=== PATIENT | female | born 1970 | race Caucasian/White ===

== ENCOUNTER → 2022-05-31 | Outpatient (CLI) | payer OTHER ==
[2022-05-31 15:17] LABS: HEMOGLOBIN 14.7 gm/dl (12.3-15.3); RED BLOOD COUNT 4.68 M/UL (4.00-5.10); WHITE BLOOD COUNT 12.1 K/UL (4.5-11.0)
[2022-05-31 22:46] LABS: BUN/CREATININE RATIO 18 (0-10)
[2022-06-01 07:12] LABS: VITAMIN D, 25-HYDROXY 16.3 ng/mL (30.0-100.0)
[2022-06-01 08:13] LABS: ANTISTREPTOLYSIN O AB 550.8 IU/mL (0.0-200.0); RHEUMATOID ARTHRITIS FACTOR <10.0 IU/mL (<14.0)
[2022-06-03 17:08] LABS: HBSAG SCREEN Negative (Negative); HCV AB >11.0 (0.0-0.9); HCV LOG10 7.093 (.); HCV RNA (INTERNATIONAL UNITS) 12400000 IU/mL (.); HEP A AB, IGM Negative (Negative); HEP B CORE AB, IGM Negative (Negative); HEPATITIS C QUANTITATION See Final Results IU/mL (.)
== END ==
LOC: RAD 13:49
PROVIDERS: Nurse Practitioner Family
DX: R05.9 Cough, unspecified (principal); M54.50 Low back pain, unspecified; M19.90 Unspecified osteoarthritis, unspecified site; R53.81 Other malaise; E78.5 Hyperlipidemia, unspecified; I10 Essential (primary) hypertension; E61.1 Iron deficiency; Z79.899 Other long term (current) drug therapy; M25.50 Pain in unspecified joint; M50.322 Other cervical disc degeneration at C5-C6 level; M48.54XA Collapsed vertebra, not elsewhere classified, thoracic region, initial encounter for fracture; M47.816 Spondylosis without myelopathy or radiculopathy, lumbar region; M51.36 Other intervertebral disc degeneration, lumbar region; N20.0 Calculus of kidney
CPT/HCPCS: 36415; 71046; 72050; 72070; 72110; 80053; 80061; 80074; 82150; 82607; 82728; 82746; 83540; 83550; 83690; 84443; 84550; 85027; 85652; 86038; 86060; 86140; 86431